=== PATIENT | male | born 1970 | race Caucasian/White ===

== ENCOUNTER 2017-06-24 07:01 | Day surgery (SDC) | payer OTHER ==
[~2017-06-24] VITALS: Ht 188 cm; Wt 140.6 kg
[~2017-06-24 07:01] MED LIST: GLUCOPHAGE500 MG PO; LANTUS 10100 UNITS/ SC; NOVOLOG PE100 UNITS/ SC
[2017-06-24 07:32] VITALS: BP 158/80
[2017-06-24 10:47] VITALS: BP 161/90
[2017-06-24 11:06] VITALS: BP 158/88
== END 2017-06-24 11:20 | disposition home or self-care (01) ==
LOC: SDC 07:01
PROVIDERS: Ophthalmology
PROC: 3E0C329 Introduction of Other Anti-infective into Eye, Percutaneous Approach (ICD-10-PCS; principal; 2017-06-24)
PROC: 3E0C33Z Introduction of Anti-inflammatory into Eye, Percutaneous Approach (ICD-10-PCS; principal; 2017-06-24)
PROC: 08B53ZZ Excision of Left Vitreous, Percutaneous Approach (ICD-10-PCS; principal; 2017-06-24)
PROC: 08QF3ZZ Repair Left Retina, Percutaneous Approach (ICD-10-PCS; principal; 2017-06-24)
DX: H43.12 Vitreous hemorrhage, left eye (principal); E11.3592 Type 2 diabetes mellitus with proliferative diabetic retinopathy without macular edema, left eye; I10 Essential (primary) hypertension; Z79.4 Long term (current) use of insulin; Z87.891 Personal history of nicotine dependence; E78.5 Hyperlipidemia, unspecified; G47.30 Sleep apnea, unspecified; E66.01 Morbid (severe) obesity due to excess calories; Z68.39 Body mass index [BMI] 39.0-39.9, adult
CPT/HCPCS: 82948; J0690; J0713; J3300

== ENCOUNTER 2017-07-15 07:58 | Day surgery (SDC) | payer OTHER ==
[~2017-07-15] VITALS: Ht 188 cm; Wt 145.4 kg
[~2017-07-15 07:58] MED LIST changes: +TENORMIN25 MG PO; +ZESTRIL40 MG PO
[2017-07-15 08:35] VITALS: BP 186/91
[2017-07-15 12:11] VITALS: BP 186/88
[2017-07-15 12:28] VITALS: BP 121/63
== END 2017-07-15 12:30 | disposition home or self-care (01) ==
LOC: SDC 07:58
PROVIDERS: Ophthalmology
DX: H43.11 Vitreous hemorrhage, right eye (principal); E11.3591 Type 2 diabetes mellitus with proliferative diabetic retinopathy without macular edema, right eye; I10 Essential (primary) hypertension; Z87.891 Personal history of nicotine dependence; Z79.4 Long term (current) use of insulin
CPT/HCPCS: 82948; J0690; J0713